=== PATIENT | female | born 1995 | race American Indian/Alaskan Native ===

== ENCOUNTER 2018-01-05 18:52 | Emergency (ER) | payer OTHER, MEDICAID ==
[2018-01-05 19:26] VITALS: BMI 25.7
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
[2018-01-05 19:32] VITALS: BP 122/68; PULSE 76; RESP 18; TEMP 98.2; O2SAT 100
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
== END 2018-01-05 20:17 | disposition home or self-care (01) ==
LOC: ED 18:52
DX: S39.012A Strain of muscle, fascia and tendon of lower back, initial encounter (principal); V49.49XA Driver injured in collision with other motor vehicles in traffic accident, initial encounter; W22.11XA Striking against or struck by driver side automobile airbag, initial encounter; Y92.410 Unspecified street and highway as the place of occurrence of the external cause